=== PATIENT | male | born 1940 | race Caucasian/White ===

== ENCOUNTER → 2019-05-27 | Emergency (ER) | payer SELFPAY ==
[~2019-05-27] VITALS: Ht 167.6 cm; Wt 70.3 kg
[~2019-05-27] MED LIST: ALBUMIN 25% 100 ML IV ONE; ALBUMIN 25% 200 ML IV ONE; CALCIUM CHLOR(10%) 100MG/ML 10ML SYRINGE IV ONE; EPINEPHrine HCL 1 MG/10 ML SYRG IV ONE; ETOMIDATE (2MG/ML) 20ML VIAL IV ONE; MIDAZOLAM DRIP 50 mg/50mL 50 ML IV ONE; MIDAZOLAM DRIP 50 mg/50mL 50 ML IV SCH; NOREPINEPHRINE 8 MG/250ML KIT 250 ML IV ONE; NOREPINEPHRINE 8 MG/250ML KIT 250 ML IV SCH; PHENYLEPHRINE IV 250 ML IV ONE; SODIUM BICARBONATE 50ML VIAL 50 ML in SOD CHL 0.45% 1,000 ML IV ONE; SODIUM BICARBONATE 8.4 % INJ 50ML VIAL IV ONE; SODIUM BICARBONATE 8.4% INJ 50ML SYRINGE IV ONE; SODIUM CHLORIDE 0.9% 1,000 ML IV ONE; SODIUM CHLORIDE 0.9% 2,100 ML IV ONE; SUCCINYLCHOLINE CHLORIDE 20 MG/ML 10ML VIAL IV ONE
[2019-05-27 20:00] LABS: Basophils # (auto) 0.1 10 ^3/uL (0-0.2); Eosinophils # (auto) 0.4 10 ^3/uL (0-0.8); Eosinophils % (auto) 3.5 % (0.0-7.0); Lymphocytes # (auto) 2.7 10 ^3/uL (0.4-5.4); Mean Corpuscular Volume 96.5 fL (80.0-100.0)
[2019-05-27 20:01] LABS: Basophils % (auto) 0.8 % (0.0-2.0); Hematocrit 32.5 % (41.0-53.0); Hemoglobin 9.7 g/dL (13.5-17.5); Lymphocytes % (auto) 23.8 % (10.0-50.0); Mean Corpuscular Hemoglobin 28.9 pg (28.0-32.0); Monocytes # (auto) 1.1 10 ^3/uL (0-1.3); Monocytes % (auto) 9.4 % (0.0-12.0); Neutrophils % (auto) 62.5 % (37.0-80.0); Platelet Count (auto) 223 10^3/uL (140-450); Red Blood Cells 3.36 10^6/uL (4.5-5.90); Red Cell Distribution Width 16.6 % (11.8-14.3); White Blood Cell 11.3 10^3/uL (4.4-10.8)
[2019-05-27 20:18] LABS: Albumin 3.2 g/dL (3.4-5.0); Anion Gap 13 (5-15); Blood Urea Nitrogen 48 mg/dL (7-18); Calcium 7.6 mg/dL (8.5-10.1); Carbon Dioxide 12 mmol/L (21-32); Chloride 111 mmol/L (98-107); Glucose 358 mg/dL (74-106); Magnesium 2.9 mg/dL (1.6-2.6); Sodium 136 mmol/L (136-145)
[2019-05-27 20:19] LABS: INR 1.18 (0.9-1.15); Partial Thromboplastin Time 40.2 sec (23.64-32.05)
[2019-05-27 20:23] LABS: Alanine Aminotransferase 21 U/L (16-61); Alkaline Phosphatase 106 U/L (45-117); Aspartate Aminotransferase 34 U/L (15-37); BUN/Creatinine Ratio 14.6; Bilirubin, Total 0.2 mg/dL (0.2-1.0); GFR African American 24 mL/min; GFR Non-African American 19 mL/min; Total Protein 6.4 g/dL (6.4-8.2)
[2019-05-27 20:34] LABS: Potassium 6.5 mmol/L (3.5-5.1)
[2019-05-27 21:54] LABS: Calcium 8.5 mg/dL (8.5-10.1)
[2019-05-27 21:56] LABS: BUN/Creatinine Ratio 14.3
[2019-05-27 22:15] VITALS: BP 126/92
== END | disposition expired ==
LOC: ER 19:24 → EDBD 19:24
DX: G93.41 Metabolic encephalopathy (principal); E87.2 Acidosis; J18.1 Lobar pneumonia, unspecified organism; I12.9 Hypertensive chronic kidney disease with stage 1 through stage 4 chronic kidney disease, or unspecified chronic kidney disease; E11.22 Type 2 diabetes mellitus with diabetic chronic kidney disease; N18.9 Chronic kidney disease, unspecified
CPT/HCPCS: 31500; 36415; 36556; 36600; 70450; 71045; 80048; 80053; 82805; 83735; 83880; 84443; 84484; 85025; 85379; 85610; 85730; 87070; 87205; 92950; 96365; 96367; 99285; A4618; J0171; J0330; J2250; J2370; P9047; 93005; 94002